=== PATIENT | female | born 1960 | race Caucasian/White ===

== ENCOUNTER 2023-05-30 00:38 | Emergency (ER) | payer MEDICARE, OTHER, SELFPAY ==
[2023-05-30] VITALS (8 sets, daily range): BP systolic 141–198; BP diastolic 65–112; BMI 24.0
--- NOTE | 2023-05-30 01:15 | EDRN ---
Pt says her blood pressure is 'eh high.' Pt takes her BP BID. Pt has had spikes in her bp for 30 years. Pt says her bp will be good for several months then it will spike. BP Tuesday morning was fine. Pt says her bp continued raising with every
bp taken last night. Pt took additional 4mg candesartan around 1800. Second 4mg was around 2215. Pt went up to bed checked her bp again and it was 185/102 so pt came to ED. Pt has slight headache L side that started around 2230. No n/v,
dizziness, weakness, cp, sob, speech/new visual disturbance.
--- NOTE | 2023-05-30 01:32 | ED.GENMED ---
History of Present Illness
<DEBRA Peetrson - Last Filed: 05/30/23 04:35>
General
Chief Complaint: Blood Pressure Problem
Source: patient
Exam Limitations: none
Time Seen by Provider: 05/30/23 01:20
Nursing documentation reviewed up to this point in time: agreed with
Travel History
Have you had any contact with someone who has COVID-19?: No
Do you have any symptoms of coronavirus? Fever > 100 degrees, chills, cough, shortness of breath, sore throat, loss of taste or smell, muscle aches, or headache?: No
History of Present Illness
History of Present Illness:
63 y/o F with history of HTN presents to ED concerned about increasing blood pressure. She reports her BP at home was in 160s. Her usual readings is 130s/80s. She took her usual 8mg Losartan in morning, then 2 extra 4mg pills to bring down BP. She
states the extra 4mg did not bring her BP down as it usually does. Patient reports she has had HTN for 35 years and occasionally gets spike in her BP. 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
trailer tank truck driver. She does not have a history of cardiac issues. Patient is also reporting a mild headache on the L side of her head above her eye. She does have a history of migraines. Denies fatigue, chest pain, dizziness, or blurry vision.
If applicable-neuro sx onset
Onset of symptoms known: Yes
Date of onset of symptoms: 05/30/23
Past History
<DEBRA Peterson - Last Filed: 05/30/23 04:35>
Past History
ED Past Medical History: Asthma (Seasonal allergies), GERD, HTN and Other (IBS, Painful bladder syndrome,)
ED Past Surgical History: None
Social History
Tobacco: Non-smoker
Alcohol: None
Personal:
Living: alone
Review of Systems
<MaggyDEBRA Winslow - Last Filed: 05/30/23 04:35>
Review of Systems
Allergies reviewed?: Yes
All Other Systems: ROS reviewed and negative except as documented in HPI and ROS
Constitutional: Reports no symptoms
EENT: Reports no symptoms
Respiratory: Reports no symptoms
Cardiac: Reports no symptoms
ABD/GI: Reports no symptoms
: Reports no symptoms
Musculoskeletal: Reports no symptoms
Skin: Reports no symptoms
Neurological: Reports headache
Endocrine: Reports no symptoms
Hematologic/Lymphatic: Reports no symptoms
Psychiatric: Reports no symptoms
Phy Exam
<MaggyDEBRA Winslow - Last Filed: 05/30/23 04:35>
General Physical Exam
General Presentation: well appearing and no apparent distress
General age: appears stated age
General Skin: warm and dry
General Habitus: normal
General Mental: alert
General Hydration: appears well hydrated
ENT Exam
ENT Exam: neck supple
Eye Exam
Eye Exam: PERRL, EOMI, cornea clear, conjunctiva normal and visual acuity normal
Eye Exam General: PERRL: bilateral and EOM intact: bilateral
Cardiovascular Exam
Cardiovascular Exam: regular rate/rhythm, no edema, no gallop, no murmur and normal peripheral pulses
Pulmonary Exam
Pulmonary Exam: lungs clear, no respiratory distress, no rales, no crackles and no rhonchi
Neurological Exam
Neurological Exam: alert and oriented x3
Skin Exam
Skin Exam: normal color, warm/dry and no rash
Psychiatric Exam
Psychiatric Exam: normal mood/affect
Course
<MaggyDEBRA Winslow - Last Filed: 05/30/23 04:35>
Orders/Labs/Results
Orders:
Orders
05/30/23 00:54
Electrocardiogram (*1) Urgent
Reason for Study: Hypertension, Benign
EKG- Treatment ONCE
05/30/23 02:21
CMP [Comprehensive Metabolic Panel] Urgent
Complete Blood Count/With Diff Urgent
TSH Urgent
Troponin I Urgent
Abnormal Lab Results
24
02:21
Hct 36.0 L %
(37.0-47.0)
MCHC 37.2 H g/dL
(33.0-37.0)
Monocytes % 9.4 H %
(1.7-9.3)
Glucose 105 H mg/dl
(70-99)
Calcium 10.6 H mg/dl
(8.4-10.2)
AST 37 H U/L
(14-36)
TSH 5.84 H uIU/ml
(0.47-4.68)
05/30/23 02:21
05/30/23 02:21
Vital Signs
Initial and Last Documented VS:
Initial Vital Signs
Temp Pulse Resp BP Pulse Ox
97.8 F 78 22 198/112 98
05/30/23 00:48 05/30/23 00:48 05/30/23 00:48 05/30/23 00:48 05/30/23 00:48
Last Documented Vital Signs
Temp Pulse Resp BP Pulse Ox
97.8 F 72 18 141/65 98
05/30/23 00:48 05/30/23 04:00 05/30/23 04:00 05/30/23 04:00 05/30/23 00:48
<Mason Duran DO - Last Filed: 05/30/23 04:15>
Orders/Labs/Results
Orders:
Orders
05/30/23 00:54
Electrocardiogram (*1) Urgent
Reason for Study: Hypertension, Benign
EKG- Treatment ONCE
05/30/23 02:21
CMP [Comprehensive Metabolic Panel] Urgent
Complete Blood Count/With Diff Urgent
TSH Urgent
Troponin I Urgent
Abnormal Lab Results
05/30/23
02:21
Hct 36.0 L %
(37.0-47.0)
MCHC 37.2 H g/dL
(33.0-37.0)
Monocytes % 9.4 H %
(1.7-9.3)
Glucose 105 H mg/dl
(70-99)
Calcium 10.6 H mg/dl
(8.4-10.2)
AST 37 H U/L
(14-36)
TSH 5.84 H uIU/ml
(0.47-4.68)
05/30/23 02:21
05/30/23 02:21
Vital Signs
Initial and Last Documented VS:
Initial Vital Signs
Temp Pulse Resp BP Pulse Ox
97.8 F 78 22 198/112 98
05/30/23 00:48 05/30/23 00:48 05/30/23 00:48 05/30/23 00:48 05/30/23 00:48
Last Documented Vital Signs
Temp Pulse Resp BP Pulse Ox
97.8 F 72 18 141/65 98
05/30/23 00:48 05/30/23 04:00 05/30/23 04:00 05/30/23 04:00 05/30/23 00:48
<DEBRA Peterson - Last Filed: 05/30/23 04:35>
MDM/Problems Addressed
Differential Diagnosis Includes:
Elevated BP
Chronic conditions affecting care: HTN
<DEBRA Peterson - Last Filed: 05/30/23 04:35>
*Critical Care Note
Total Time (30-74mins, 75-104mins- exclusive of procedures): Not Applicable
<DEBRA Peterson - Last Filed: 05/30/23 04:35>
Update Note
Update Note:
0415: Patient doing well. BP 145/66. All other vitals stable.
<Mason Duran DO - Last Filed: 05/30/23 04:15>
Update Note
Update Note:
05/30/2023 0414 AM: Patient feeling fine wishes to be discharged home. 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
ED Attending Note
<DEBRA Peterson - Last Filed: 05/30/23 04:35>
-
Portions of this chart may have been created with voice recognition software.� Occasional wrong word or��sound alike� substitutions may have occurred due to the inherent limitations of voice recognition software.
<Mason Duran DO - Last Filed: 05/30/23 04:15>
ED Attending Note
Patient seen and examined by attending physician: Yes
I performed the substantive portion of visit, reviewed & personally made and approve the management plan that is documented in note by myself or DANNY.: Yes
ED Attending Note:
This a pleasant 63-year-old female presents with increasing blood pressure. She does have a history of hypertension and has had frequent medication changes due to fluctuations in blood pressure. She states that her blood pressure at home is
usually in the 130s but tonight it was slightly higher. She is on candesartan and she took an extra dose of that. She states that it does not work very rapidly. Patient denies any chest pain or shortness of breath. She does have migraine
headaches and has been having a mild migraine headache throughout the day. Patient denies any other neurological symptoms. Reports no blurry or double vision. Reports no weakness or chills. Patient was seen in conjunction with the PA student. I
have reviewed and agree with the history and treatment plan presented. On my independent physical exam, patient is awake, alert, and oriented x3, no acute distress at this time. Heart is regular rate and rhythm. Lungs are clear to auscultation
bilaterally without wheezes rales or rhonchi present. Pupils are equal reactive. Moves all 4 extremities. Mentating appropriately. Plan is blood work.
Discharge Plan
Departure
Patient Disposition: Home (Routine Discharge)
Date of Disposition: 05/30/23
Time of Disposition: 04:15
Patient with high blood pressure during this ER visit?: Yes
Condition: Good
Discharge Problem:
Essential (primary) hypertension
Instructions: High Blood Pressure (DC), BLOOD PRESSURE
Prescriptions:
No Action
tretinoin 0.025 % Cream
1 applic TOPICAL HS
pantoprazole [Protonix] 40 mg Tablet,Delayed Release (Dr/Ec)
40 mg PO DAILY
mometasone [Nasonex] 50 mcg/actuation Cash,Non-Aerosol
2 spray INTRANASAL DAILY
Premarin
0.5 g topical WESA
clotrimazole 10 mg Kesha
10 mg MUCOUS MEMBRANE ONCE
candesartan 8 mg Tablet
8 mg PO DAILY
loratadine [Claritin] 10 mg Tablet
10 mg PO DAILY
budesonide-formoterol [Symbicort] 80-4.5 mcg/actuation Hfa Aerosol Inhaler
2 inh INHALATION DAILY
guaifenesin [Mucinex] 600 mg Tablet Extended Release 12hr
600 mg PO DAILY
sucralfate [Carafate] 1 gram tablet
1 g PO BID
Azo Cranberry
1 tab PO DAILY
multivitamin Tablet
1 tab PO DAILY
cholecalciferol (vitamin D3) [Vitamin D3] 25 mcg (1,000 unit) Tablet
50 mcg PO DAILY
omega 5-wyh-hrm-fish oil [Fish Oil] 1,200 (144-216) mg Capsule
2 cap PO DAILY
Probiotic
1 tab PO DAILY
olopatadine [Pataday] 0.2 % Drops
1 drp BOTH EYES DAILY
Referrals:
Silvia De La Vega MD [Family Provider] -
Activity Restrictions/Additional Instructions:
It was a pleasure meeting you and taking part in your care. We hope for your continued healing and wellness.
Please read discharge instructions in their entirety. However, they are for general education and may not describe your exact diagnosis at discharge. Information on your ER visit and medical conditions were discussed with you along with appropriate
follow up information...
If indicated, please take your medications as instructed and indicated on discharge paperwork.
Please schedule a follow up appointment as directed. Call to schedule an appointment
Please return to the emergency department with ANY change in, persisting, or worsening of symptoms. If any of your symptoms do not improve, or persist, or become more severe within 6-12 hours, please return to the emergency department for further
care.
Please return to the emergency department if you develop a headache, neck pain/stiffness, fever greater than 100.4F, chest pain, shortness of breath, persistent nausea, vomiting, slurred speech, difficulty walking, numbness/tingling, weakness, signs
of infection or any other symptoms that are worrisome to you.
If you have any questions or concerns please do not hesitate to call the Hospital at or E-mail me directly at [email or web address]
Interventions
Interventions:
*Risk Screen - Suicide Last Done: 05/30/23 00:48
*General Assessment Last Done: 05/30/23 01:08
*Neglect/Abuse Screening Last Done: 05/30/23 00:48
*ED COVID-19 Vaccine History Last Done: 05/30/23 00:54
*Nursing Disposition Last Done: 05/30/23 04:30
ED- Cardiac Assessment Last Done: 05/30/23 01:28
ED- Neurological Assessment Last Done: 05/30/23 01:28
ED- Pulmonary Assessment Last Done: 05/30/23 01:28
Discharge Date and Time
Discharge Date/Time: 05/30/23 04:30
[2023-05-30 02:39] LABS: % Basophils 0.7 % (0-2); % Eosinophils 1.9 % (0-6); % Immature Granulocytes 0.2 % (0-0.5); % Lymphocytes 30.2 % (20.5-51.1); % Monocytes 9.4 % (1.7-9.3); % Neutrophils 57.6 % (42.2-75.2); Absolute Eosinophils 0.1 10^3/uL (0-0.7); Absolute Lymphocytes 1.7 10^3/uL (1.2-3.4); Absolute Monocytes 0.5 10^3/uL (0.1-0.6); Absolute Neutrophils 3.3 10^3/uL (1.4-6.5); Hemoglobin 13.4 g/dL (12.0-16.0); Mean Corp Hgb Conc. 37.2 g/dL (33.0-37.0); Mean Corpuscular Hgb 30.5 pg (27.0-31.0); Mean Corpuscular Volume 81.8 fL (81.0-99.0); Mean Platelet Volume 10.2 fL (7.4-10.4); Nucleated Red Blood Cells % 0 %; Platelet Count 195 10^3/uL (130-400); Red Cell Dist. Width 11.6 % (11.5-14.5); White Blood Cell Count 5.7 10^3/uL (4.8-10.8)
[2023-05-30 02:56] LABS: ALT (SGPT) 29 U/L (0-35); AST (SGOT) 37 U/L (14-36); Albumin 4.3 g/dl (3.5-5.0); Alkaline Phosphatase 101 U/L (38-126); Blood Urea Nitrogen 15 mg/dl (7-17); Calcium 10.6 mg/dl (8.4-10.2); Carbon Dioxide 28 mmol/L (22-30); Chloride 107 mmol/L (98-107); Estimated Creatinine Clearance 81 ml/min; Glucose 105 mg/dl (70-99); Potassium 3.6 mmol/L (3.5-5.1); Sodium 139 mmol/L (135-145); Total Bilirubin 0.5 mg/dl (0.2-1.3); Total Protein 6.7 g/dl (6.3-8.2); eGFR > 60.00
[2023-05-30 03:04] LABS: Troponin I < 0.012 ng/ml
[2023-05-30 03:26] LABS: TSH 5.84 uIU/ml (0.47-4.68)
== END 2023-05-30 04:30 | disposition home or self-care (01) ==
LOC: EMR 00:38
PROVIDERS: EMERGENCY PHYSICIAN Student in an Organized Health Care Education/Training Program; FAMILY PHYSICIAN Family Medicine
DX: I10 Essential (primary) hypertension (principal); J45.909 Unspecified asthma, uncomplicated; K21.9 Gastro-esophageal reflux disease without esophagitis; K58.9 Irritable bowel syndrome, unspecified
CPT/HCPCS: 99283; 80053; 84443; 84484; 85025; 93005